=== PATIENT | female | born 1985 | race Two or more races ===

== ENCOUNTER 2024-05-01 16:58 | Emergency (ER) | payer OTHER, SELFPAY ==
[2024-05-01] VITALS (10 sets, daily range): BP systolic 124–128; BP diastolic 79–88; PULSE 70–91; RESP 16–18; TEMP 36.5–36.9; O2SAT 97–100; BMI 37.2
--- NOTE | 2024-05-01 17:31 | XR_ITS ---
Examination: Pelvic ultrasound, transabdominal, complete Technique: Transabdominal ultrasound of the pelvis performed using grayscale imaging Date and time of exam: May 01, 2024 1811 hrs. Indications: Pelvic pain beginning 3 days ago, history uterine fundal mass 2.3 x 2.7 x 2.7 cm on pelvic sonogram June 13, 2023 Findings: Uterus 10.8 x 6.4 x 7.2 cm anteverted Uterine area fundal fibroid degeneration 3.1 x 2.3 x 2.9 cm Right ovary obscured by bowel gas Left ovary 3.9 x 2.1 x 2.6 cm arterial flow Endometrial stripe 0.7 cm Impression: Uterine area of fibroid degeneration in the fundus, 3.1 x 2.3 x 2.9 cm
--- NOTE | 2024-05-01 17:32 | PD.EDRME ---
Rapid Medical Screening Exam RME Arrival date/time: 05/01/24 16:58 38-year-old female presents emergency department today stating she had unprotected sex on Friday patient reports since then she has been having pain in her pelvic region and discharge Chief Complaint: Abdominal Pain Time Seen by Provider: 05/01/24 17:03 Vital signs: Vital Signs Temperature 98.5 F 05/01/24 17:22 Pulse Rate 91 05/01/24 17:22 Respiratory Rate 16 05/01/24 17:22 Blood Pressure 126/88 H 05/01/24 17:22 Pulse Oximetry (%) 98 05/01/24 17:22 Oxygen Delivery Method Room Air 05/01/24 17:22
[2024-05-01] MEDS: KETOROLAC INJ 30 MG/ML VIAL IM (17:45)
[2024-05-01 18:17] LABS: Collection Type, Urine Clean Catch
[2024-05-01 18:18] LABS: Basophils % (Auto) 0 % (0-2.5); Eosinophils # (Auto) 0.2 Thou/mm3 (0.0-0.5); Eosinophils % (Auto) 2 % (0-10); Hematocrit 38.9 % (36.0-46.0); Immature Granulocytes % (Auto) 0 % (0-0); Immature Granulocytes Auto 0.02 Thou/mm3 (0.00-0.00); Lymphocytes # (Auto) 2.3 Thou/mm3 (1.0-4.8); Lymphocytes % (Auto) 31 % (10-50); Mean Corpuscular HGB Conc 33.4 g/dl (31.0-37.0); Mean Corpuscular Hemoglobin 27.4 pg (25.0-35.0); Mean Corpuscular Volume 82 fL (80-100); Monocytes # (Auto) 0.6 Thou/mm3 (0.0-0.8); Monocytes % (Auto) 9 % (0-12); Neutrophils # (Auto) 4.2 Thou/mm3 (1.8-7.7); Neutrophils % (Auto) 58 % (37-80); Nucleated Red Blood Cell % 0 /100 WBC (0); Platelet Count 222 Thou/mm3 (140-440); RDW Standard Deviation 39.6 fL (36.4-46.3); Red Blood Count 4.74 Miln/mm3 (4.00-5.20); White Blood Count 7.3 Thou/mm3 (3.6-11.0)
[2024-05-01 18:25] LABS: Bilirubin,Urine Negative (Negative); Blood,Urine Trace (Negative); Clarity,Urine Clear (Clear/Hazy); Color,Urine Lt-Yellow (Lt Yel-Yel); Culture Indicated,Urine Not Indicated; Glucose, Urine Negative (Negative); Ketones,Urine Negative (Negative); Leukocyte Esterase,Urine Negative (Negative); Nitrite,Urine Negative (Negative); Protein,Urine Negative (Neg - Trace); RBC,Urine 3 /hpf (0-3); Specific Gravity,Urine 1.021 (1.001-1.035); Squamous Epithelial Cell,Urine 5 /hpf (0-5); Urobilinogen,Urine Negative mg/dL (0.0-1.0); WBC,Urine 1 /hpf (0-5)
--- NOTE | 2024-05-01 18:52 | PC.NURSE ---
Patient from to er from [facility] and taken to room 19 with c/o lower abdominal pain radiating through back x 3 days, patient also, c/o nausea, no vomiting or diarrhea, skin is warm dry and pain, patient rates pain 8/10 after administration of toradol in [facility], chart up to be seen by er provider, call light within reach.
[2024-05-01 18:53] LABS: Alanine Aminotransferase 40 U/L (10-49); Albumin, Serum 4.5 gm/dL (3.5-5.0); Albumin/Globulin Ratio 1.4 (1.2-2.2); Alkaline Phosphatase 61 U/L (46-116); Anion Gap 9 (7-16); Aspartate Amino Transferase 30 U/L (0-34); BUN/Creatinine Ratio 11 Ratio (12-20); Blood Urea Nitrogen 8 mg/dL (9-23); Calcium 9.4 mg/dL (8.3-10.6); Calcium (Corrected) 9.4 mg/dL (8.5-10.1); Carbon Dioxide 25.5 mMol/L (20.0-31.0); Chloride 105 mMol/L (98-107); Creatinine (Component) 0.7 mg/dL (0.6-1.3); Estimated Creatinine Clearance 139.6 mL/min (>60); Globulin 3.2 gm/dL (2.3-3.5); Glucose 88 mg/dL (74-106); Lipase 91 U/L (12-53); Osmolality,Calculated 274 (275-295); Potassium 3.8 mMol/L (3.4-5.1); Sodium 139 mMol/L (136-145); Total Protein 7.7 gm/dL (5.7-8.2); eGFR > 60 See Note
--- NOTE | 2024-05-01 19:06 | XR_ITS ---
Examination: CT abdomen with intravenous contrast CT pelvis with intravenous contrast 2-D coronal reconstructions 2-D sagittal reconstructions Date and time of exam:May 01, 20242048 hrs. Indications: Abdominal pain beginning 3 days ago with nausea weakness CTDI: vol (mGy) May 01, 20242048 hrs. Comparison June 13, 2023 DLP: (mGycm) 60 cc Isovue-370 Technique: Multiple axial sections of the abdomen and pelvis have been obtained. 64 slice high-resolution scanner used. 3 mm axial sections have been obtained, post intravenous injection 60 cc Isovue-370 2-D sagittal, coronal reconstructions obtained. Low dose protocols were performed. One or more of the following dose reduction techniques were used; automated exposure control, adjustment of the mA and/or KV according to patient size, use of iterative reconstruction technique. Findings: No focal liver or splenic lesions Absent gallbladder No pancreatic or adrenal mass Moderate bilateral renal parenchymal scar formation No renal or ureteral calculi, no hydronephrosis No bowel obstruction A few loops of fluid distended small bowel in the lower abdomen Absent appendix No adnexal mass Contracted urinary bladder Moderate osteopenia L5-S1 3 mm calcified central lumbar disc bulge Impression: Absent gallbladder Moderate bilateral renal parenchymal scar formation, no hydronephrosis A few loops of fluid distended small bowel in the lower abdomen, consider ileus, enteritis No bowel obstruction
--- NOTE | 2024-05-01 19:06 | PD.EDABDPN ---
ED Abdominal Pain RME/HPI General Chief Complaint: Abdominal Pain Stated complaint: ABD PAIN x 2 DAYS Time seen by provider: 05/01/24 17:03 Arrival date/time: 05/01/24 16:58 RME / HPI RME / HPI narrative: 38-year-old female presents emergency department today stating she had unprotected sex on Friday. Patient reports since then she has been having pain in her pelvic region and discharge pain is described as dull ache, severity 8 out of 10 radiating to the left lower abdomen. Patient denies any dysuria or frequency. Patient denies any fever. Denies any vomiting. She states that she had bilateral tubal ligation in the past. Related Data Previous Rx's ?Medication ?Instructions ?Recorded docusate sodium 100 mg capsule 100 mg PO BID #40 caps 11/24/21 hydrocodone 5 mg-acetaminophen 325 1 tab PO Q6HR PRN pain (scale 11/24/21 mg tablet score 7-10) #20 tabs ibuprofen 600 mg tablet 600 mg PO Q8H PRN pain (scale 11/24/21 score 4-6) #15 tabs hydrocodone 5 mg-acetaminophen 325 1 tab PO Q8H PRN pain #14 tabs 06/13/23 mg tablet ibuprofen 800 mg tablet (IBU) 800 mg PO Q8H #20 tabs 06/13/23 valacyclovir 1 gram tablet 1,000 mg PO TID #21 tabs 05/01/24 (Valtrex) Allergies Allergy/AdvReac Type Severity Reaction Status Date / Time No Known Allergies Allergy Verified 05/01/24 17:00 Review of Systems Review of Systems Narrative Review of Systems: Review of system reviewed and within normal limits except mentioned in HPI ED Exam Narrative Physical exam: VITAL SIGNS: Reviewed. GENERAL APPEARANCE: Alert and interactive, follows commands, no acute distress, HEAD AND FACE: Non-traumatic. ENT: PERRL, pink conjunctivitis, eyelid no trauma, Mucous membrane moist. NECK: Supple, nontender, no nuchal rigidity. CHEST: No tenderness, no crepitus, no paradoxical movement, no retractions. LUNGS: Clear, well ventilated, symmetric, no rales, no wheezing, no ronchi, no stridor, good breath sounds bilaterally. HEART: Regular rate, regular rhythm, no murmur, no gallops. ABDOMEN: Soft, positive bowel sounds, nondistended, no guarding, left lower abdominal tenderness,/pelvic tenderness, no rebound, no masses, RECTAL: Deferred. GENITAL: Deferred. NEUROLOGICAL: Gross motor function intact sensory function intact, Appropriate for age. MUSCULOSKELETAL: low back nontender, full range of motion. EXTREMITIES: Nontender, full range of motion. SKIN: Color pink, dry, no rash, no lacerations, no abrasions, no contusions. LYMPHATICS: Deferred. Course Quality Measures none Orders Category Date Time Status CT Screening NOW Care 05/01/24 19:[address] abdomen pelvis w con Stat Exams 05/01/24 19:06 Completed US pelvic complete Stat Exams 05/01/24 17:31 Completed CBC Stat Lab 05/01/24 17:59 Completed Chlamydia/GC/TV - PCR Stat Lab 05/01/24 17:42 Received Comprehensive Metabolic Panel Stat Lab 05/01/24 17:59 Completed HCG Qualitative,Urine Stat Lab 05/01/24 17:42 Completed Lipase Stat Lab 05/01/24 17:59 Completed UA, C/S IF [Urinalysis, C/S if Indicated] Stat Lab 05/01/24 17:42 Completed Acyclovir [Zovirax] Med 05/01/24 23:21 Discontinued 800 mg PO X1 ONE Ketorolac Inj [Toradol Inj] Med 05/01/24 17:31 Discontinued 30 mg IM X1 ONE Morphine Inj Med 05/01/24 19:06 Discontinued 4 mg IVP X1 ONE Vital Signs Vital signs: Vital Signs Temperature 98.5 F 05/01/24 17:22 Pulse Rate 91 05/01/24 17:22 Respiratory Rate 16 05/01/24 17:22 Blood Pressure 126/88 H 05/01/24 17:22 Pulse Oximetry (%) 98 05/01/24 17:22 Oxygen Delivery Method Room Air 05/01/24 17:22 Abdominal Pain MDM MDM Narrative MDM Narrative:: 38-year-old female presents emergency department today stating she had unprotected sex on Friday. Patient reports since then she has been having pain in her pelvic region and discharge pain is described as dull ache, severity 8 out of 10 radiating to the left lower abdomen. Patient denies any dysuria or frequency. Patient denies any fever. Denies any vomiting. She states that she had bilateral tubal ligation in the past. Pelvic exam was done by me with a female nurse around all the time, I noticed multiple blister noted on the perivaginal area. No redness noted, no abnormal vaginal discharge is noted. Patient's workup all came back unremarkable urinalysis no UTI. Pelvic ultrasound also came back normal, CT scan of the abdomen and pelvis also came back unremarkable. Patient received acyclovir in the emergency room. Patient data External records reviewed:: None Clinical information provided by:: patient Social determinants that could affect healthcare access:: none Patient has the following chronic illnesses:: None How is presenting disease/condition affected by chronic disease/condition?: no chronic disease Evaluation data The following diagnostics were reviewed and interpreted by me:: lab results and radiology exam(s) Lab and/or radiology exams considered but not ordered:: None Interpretation Summary: Patient's workup all came back unremarkable urinalysis no UTI. Pelvic ultrasound also came back normal, CT scan of the abdomen and pelvis also came back unremarkable. Medications / Prescriptions Medications or Prescriptions considered but not ordered:: None Medication administrations:: Medication Administration History Discontinued Medications Acyclovir (Acyclovir 800 Mg Tablet) 800 mg PO X1 ONE Stop: 05/01/24 23:22 Ketorolac Tromethamine (Ketorolac Inj 30 Mg/Ml Vial) 30 mg IM X1 ONE Stop: 05/01/24 17:32 Last Admin: 05/01/24 17:45 Dose: 30 mg Documented By: Morphine Sulfate (Morphine Sulf Inj 10 Mg/Ml Vial) 4 mg IVP X1 ONE Stop: 05/01/24 19:07 Last Admin: 05/01/24 19:19 Dose: 4 mg Documented By: KD Morphine, Valtrex, and Toradol Consultations Consultation(s) initiated? (list below): No Diagnosis Differential diagnosis abdominal pain: abdominal pain and other (Pelvic pain, genital blister, genital herpes) Most likely diagnosis given after review of the tests above:: Abdominal pain, pelvic pain, genital blister, genital herpes Admission Indicated Admission indicated?: not indicated Explain why admission is indicated or not indicated:: Stable Admission Request Was there a request for admission?: No Disposition Plan Disposition Plan: Discharge Discharge Attestation Discharge Attestation: The patient and all family members were given an opportunity to ask questions and understood the discharge instructions. Discharge instructions specifically effects, indications for sooner follow up or return to the emergency department, and the expected course of current diagnosis. Patient condition: Stable Discharge Plan Plan Patient Disposition: HOME (Self Care) Disposition Comment: Stable Prescriptions/Referrals Prescriptions/Med Rec: New valacyclovir [Valtrex] 1 gram tablet 1,000 mg PO TID Qty: 21 0RF No Action hydrocodone-acetaminophen 5-325 mg Tablet 1 tab PO Q6HR MDD 4 PRN (Reason: pain (scale score 7-10)) Qty: 20 0RF docusate sodium 100 mg Capsule 100 mg PO BID Qty: 40 0RF ibuprofen 600 mg tablet 600 mg PO Q8H PRN (Reason: pain (scale score 4-6)) Qty: 15 0RF ibuprofen [IBU] 800 mg tablet 800 mg PO Q8H Qty: 20 0RF hydrocodone-acetaminophen 5-325 mg tablet 1 tab PO Q8H MDD 3 PRN (Reason: pain) Qty: 14 0RF Referrals: No Primary/Family,Physician [Primary Care Provider] - In 1 week Problem List Clinical Impression: Blister of genital area Patient/Caregiver Discharge Instructions Discharge Activity: activity as tolerated Education Materials: Diagnosing Herpes Additional Instructions: Thank you for the opportunity for serving you today. You are stable for discharged . You are advised to: Follow-up with your PCP in 1 to 2 days and asked for referral to [facility] Return to ED for worsening of symptoms Increase oral fluids Take medication as prescribed Print Language: Persian Stand Alone Forms: [facility]ita Award Info., Patient Portal Info Letter
[2024-05-01] MEDS: MORPHINE SULF INJ 10 MG/ML VIAL 4 MG IVP (19:19)
[2024-05-01 20:17] LABS: HCG Qualitative,Urine Negative
[2024-05-01] MEDS: ACYCLOVIR 800 MG TABLET PO (23:28)
[2024-05-02 10:20] LABS: Chlamydia trachomatis PCR Negative (Not Detect); Neisseria Gonorrhoeae DNA PCR Negative (Not Detect); Trichomonas Negative (Negative)
== END 2024-05-01 23:41 | disposition home or self-care (01) ==
PROVIDERS: Nurse Practitioner Family; Nurse Practitioner Primary Care; Emergency Provider Emergency Medicine
DX: S30.824A Blister (nonthermal) of vagina and vulva, initial encounter (principal); R10.2 Pelvic and perineal pain
CPT/HCPCS: 36415; 74177; 76856; 80053; 81001; 81025; 83690; 85025; 87491; 87591; 87661; 96372; 96374; 99285; A4649; J1885; J2270; Q9967; A9270

== ENCOUNTER 2024-11-29 15:32 | Emergency (ER) | payer OTHER, SELFPAY ==
[2024-11-29 15:43] VITALS: BP 130/85; PULSE 80; RESP 20; TEMP 36.8; O2SAT 97; BMI 33.7
--- NOTE | 2024-11-29 16:08 | XR_ITS ---
Examination: Pelvic ultrasound, transabdominal, complete Technique: Transabdominal ultrasound of the pelvis performed using grayscale imaging Date and time of exam: November 29, 2024 1623 hours INDICATIONS: Lower abdominal pain and pelvic pain beginning 2 days ago. FINDINGS: Uterus 9.5 cm endometrial stripe 0.7 cm No uterine mass or intrauterine gestation Right ovary 2.9 cm flow. Left ovary 2.6 cm arterial flow 15 x 12 x 13 mm lymph node in the right adnexal region IMPRESSION: 15 x 12 x 13 mm lymph node in the right adnexal region, consider CT scan abdomen and pelvis post intravenous contrast follow-up to compare with the April 2024 exam
--- NOTE | 2024-11-29 16:25 | PD.EDABDPN ---
ED Abdominal Pain RME/HPI General Chief Complaint: Abdominal Pain Stated complaint: Right lower abdominal pain X 2 days Arrival date/time: 11/29/24 15:32 39-year-old female with no known medical history presents to the emergency room with a chief complaint of right pelvic pain x 2 days. Patient is also complaining of an abscess in the gluteal cleft x 1 week Source: patient Mode of arrival: ambulatory Limitations: no limitations Related Data Previous Rx's ?Medication ?Instructions ?Recorded docusate sodium 100 mg capsule 100 mg PO BID #40 caps 11/24/21 hydrocodone 5 mg-acetaminophen 325 1 tab PO Q6HR PRN pain (scale 11/24/21 mg tablet score 7-10) #20 tabs ibuprofen 600 mg tablet 600 mg PO Q8H PRN pain (scale 11/24/21 score 4-6) #15 tabs hydrocodone 5 mg-acetaminophen 325 1 tab PO Q8H PRN pain #14 tabs 06/13/23 mg tablet ibuprofen 800 mg tablet (IBU) 800 mg PO Q8H #20 tabs 06/13/23 valacyclovir 1 gram tablet 1,000 mg PO TID #21 tabs 05/01/24 (Valtrex) Allergies Allergy/AdvReac Type Severity Reaction Status Date / Time No Known Allergies Allergy Verified 11/29/24 15:35 Review of Systems Review of Systems Systems Reviewed: All systems reviewed, normal except as documented Constitutional Constitutional: Reports system reviewed and no additional complaints, except as documented, Denies fatigue, Denies fever(s), Denies headache(s) and Denies weakness Eyes Eyes: Reports system reviewed and no additional complaints, except as documented, Denies blurry vision and Denies change in vision ENT Ears, Nose, Mouth, and Throat: Reports system reviewed and no additional complaints, except as documented, Denies otalgia, Denies headache(s), Denies nasal congestion, Denies throat swelling and Denies vertigo Cardiovascular Cardiovascular: Reports system reviewed and no additional complaints, except as documented, Denies chest pain, Denies dyspnea and Denies dyspnea on exertion Respiratory Respiratory: Reports system reviewed and no additional complaints, except as documented, Denies chest congestion, Denies cough, Denies dyspnea, Denies dyspnea on exertion and Denies wheezing Gastrointestinal Gastrointestinal: Reports system reviewed and no additional complaints, except as documented, Reports abdominal pain, Reports cramping, Denies nausea and Denies vomiting Genitourinary Genitourinary: Reports system reviewed and no additional complaints, except as documented Musculoskeletal Musculoskeletal: Reports system reviewed and no additional complaints, except as documented and Denies back pain Integumentary/Breasts Skin/Breast: Reports system reviewed and no additional complaints, except as documented, Reports erythema, Reports furuncle and Denies wounds Neurologic Neurologic: Reports system reviewed and no additional complaints, except as documented, Denies confusion, Denies headache(s), Denies lack of coordination, Denies vertigo and Denies weakness Psychiatric Psychiatric: Reports system reviewed and no additional complaints, except as documented, Denies anxiety, Denies confusion, Denies depression, Denies paranoia, Denies suicidal ideation and Denies tactile hallucinations Endocrine Endocrine: Reports system reviewed and no additional complaints, except as documented and Denies fatigue Hematologic/Lymphatic Hematologic/Lymphatic: Reports system reviewed and no additional complaints, except as documented and Denies lymphadenopathy Allergic/Immunologic Allergic/Immunologic: Reports system reviewed and no additional complaints, except as documented, Denies throat swelling, Denies urticaria and Denies wheezing ED Exam General Limitations: Present no limitations General appearance: Present alert and in no apparent distress Head Head exam: Present atraumatic Eye Eye exam: Present normal appearance, PERRL and EOMI ENT ENT exam: Present normal exam, normal oropharynx and mucous membranes moist Neck Neck exam: Present normal inspection, full ROM and trachea midline Chest Chest inspection: Present normal inspection and symmetric chest wall rise Respiratory Respiratory exam: Present normal lung sounds bilaterally Cardiovascular Cardiovascular exam: Present regular rate, normal rhythm and normal heart sounds Abdominal Exam Abdominal exam: Present soft and normal bowel sounds; Absent distention, tenderness, guarding, rebound or rigidity Extremities Exam Extremities exam: Present normal inspection and full ROM Back Exam Back exam: Present normal inspection and full ROM Neurological Exam Neurological exam: Present alert, oriented X3 and CN II-XII intact Psychiatric Psychiatric exam: Present normal affect and normal mood Skin Skin exam: Present warm, dry, intact and normal color Course Quality Measures none Orders Category Date Time Status Incision and Drainage Set Up X1 Care 11/29/24 16:09 Active US pelvic complete Stat Exams 11/29/24 16:08 Ordered CBC Stat Lab 11/29/24 16:08 Ordered CMP [Comprehensive Metabolic Panel] Stat Lab 11/29/24 16:08 Ordered HCG Qualitative,Urine Stat Lab 11/29/24 16:08 Ordered Lipase Stat Lab 11/29/24 16:08 Ordered UA [Urinalysis] Stat Lab 11/29/24 16:08 Ordered Urine Culture Stat Lab 11/29/24 16:08 Ordered Vital Signs Vital signs: Vital Signs Temperature 98.3 F 11/29/24 15:43 Pulse Rate 80 11/29/24 15:43 Respiratory Rate 20 11/29/24 15:43 Blood Pressure 130/85 H 11/29/24 15:43 Pulse Oximetry (%) 97 11/29/24 15:43 Oxygen Delivery Method Room Air 11/29/24 15:43 Abdominal Pain MDM MDM Narrative MDM Narrative:: 39-year-old female with no known medical history presents to the emergency room with a chief complaint of right pelvic pain x 2 days. Patient is also complaining of an abscess in the gluteal cleft x 1 week Patient data External records reviewed:: [facility] previous records Clinical information provided by:: patient Social determinants that could affect healthcare access:: none Patient has the following chronic illnesses:: No chronic illness How is presenting disease/condition affected by chronic disease/condition?: no chronic disease Evaluation data The following diagnostics were reviewed and interpreted by me:: lab results and radiology exam(s) Lab and/or radiology exams considered but not ordered:: Labs and radiology exams considered in order Discharge Plan Prescriptions/Referrals Prescriptions/Med Rec: No Action hydrocodone-acetaminophen 5-325 mg Tablet 1 tab PO Q6HR MDD 4 PRN (Reason: pain (scale score 7-10)) Qty: 20 0RF docusate sodium 100 mg Capsule 100 mg PO BID Qty: 40 0RF ibuprofen 600 mg tablet 600 mg PO Q8H PRN (Reason: pain (scale score 4-6)) Qty: 15 0RF ibuprofen [IBU] 800 mg tablet 800 mg PO Q8H Qty: 20 0RF hydrocodone-acetaminophen 5-325 mg tablet 1 tab PO Q8H MDD 3 PRN (Reason: pain) Qty: 14 0RF valacyclovir [Valtrex] 1 gram tablet 1,000 mg PO TID Qty: 21 0RF Patient/Caregiver Discharge Instructions Print Language: Dutch
[2024-11-29 16:33] LABS: Collection Type, Urine Clean Catch
[2024-11-29 16:35] LABS: Basophils # (Auto) 0.0 Thou/mm3 (0.0-0.2); Basophils % (Auto) 1 % (0-2.5); Eosinophils # (Auto) 0.1 Thou/mm3 (0.0-0.5); Eosinophils % (Auto) 2 % (0-10); Hematocrit 36.2 % (36.0-46.0); Hemoglobin 12.0 g/dL (12.0-16.0); Immature Granulocytes Auto 0.02 Thou/mm3 (0.00-0.00); Lymphocytes # (Auto) 1.4 Thou/mm3 (1.0-4.8); Lymphocytes % (Auto) 22 % (10-50); Mean Corpuscular HGB Conc 33.1 g/dl (31.0-37.0); Mean Corpuscular Hemoglobin 27.8 pg (25.0-35.0); Mean Corpuscular Volume 84 fL (80-100); Monocytes # (Auto) 0.4 Thou/mm3 (0.0-0.8); Monocytes % (Auto) 7 % (0-12); Neutrophils # (Auto) 4.5 Thou/mm3 (1.8-7.7); Neutrophils % (Auto) 69 % (37-80); Nucleated Red Blood Cell # 0.00 Thou/mm3 (0.00-0.00); Nucleated Red Blood Cell % 0 /100 WBC (0); Platelet Count 192 Thou/mm3 (140-440); RDW Standard Deviation 42.4 fL (36.4-46.3); Red Blood Count 4.32 Miln/mm3 (4.00-5.20); White Blood Count 6.5 Thou/mm3 (3.6-11.0)
[2024-11-29 16:46] LABS: Bacteria,Urine Rare; Bilirubin,Urine Negative (Negative); Blood,Urine 3+ (Negative); Clarity,Urine Turbid (Clear/Hazy); Color,Urine Yellow (Lt Yel-Yel); Glucose, Urine Negative (Negative); Ketones,Urine Negative (Negative); Leukocyte Esterase,Urine Positive (Negative); Nitrite,Urine Negative (Negative); PH,Urine 6.5 (5.0-7.0); Protein,Urine 1+ (Neg - Trace); RBC,Urine 9 /hpf (0-3); Specific Gravity,Urine 1.029 (1.001-1.035); Squamous Epithelial Cell,Urine 27 /hpf (0-5); Urobilinogen,Urine 3.0 mg/dL (0.0-1.0); WBC,Urine 14 /hpf (0-5)
[2024-11-29 16:48] LABS: HCG Qualitative,Urine Negative
[2024-11-29 17:03] LABS: Alanine Aminotransferase 9 U/L (10-49); Albumin, Serum 4.1 gm/dL (3.5-5.0); Albumin/Globulin Ratio 1.5 (1.2-2.2); Alkaline Phosphatase 60 U/L (46-116); Anion Gap 7 (7-16); Aspartate Amino Transferase 14 U/L (0-34); BUN/Creatinine Ratio 7 Ratio (12-20); Bilirubin,Total 1.8 mg/dL (0.3-1.2); Blood Urea Nitrogen 5 mg/dL (9-23); Calcium 8.6 mg/dL (8.3-10.6); Calcium (Corrected) 8.6 mg/dL (8.5-10.1); Carbon Dioxide 25.8 mMol/L (20.0-31.0); Chloride 108 mMol/L (98-107); Creatinine (Component) 0.7 mg/dL (0.6-1.3); Estimated Creatinine Clearance 131.3 mL/min (>60); Globulin 2.8 gm/dL (2.3-3.5); Glucose 93 mg/dL (74-106); Lipase 50 U/L (12-53); Osmolality,Calculated 278 (275-295); Potassium 3.7 mMol/L (3.4-5.1); Sodium 141 mMol/L (136-145); Total Protein 6.9 gm/dL (5.7-8.2); eGFR > 60 See Note
[2024-11-29] MEDS: HYDROcodone/APAP 5/325 TABLET 1 TAB PO (17:30)
--- NOTE | 2024-11-29 17:31 | XR_ITS ---
Examination: CT abdomen with intravenous contrast CT pelvis with intravenous contrast 2-D coronal reconstructions 2-D sagittal reconstructions Date and time of exam:November 29, 2024 and 9007 hours, comparison May 01, 2024 INDICATIONS: Intermittent right lower abdominal pain beginning 2 days ago, 15 mm lymph node in the right adnexal region on pelvic sonogram today. CTDI: vol (mGy) 10.8 DLP: (mGycm) 697 Technique: Multiple axial sections of the abdomen and pelvis have been obtained. 64 slice high-resolution scanner used. 3 mm axial sections have been obtained, post intravenous injection 60 cc Isovue 370 2-D sagittal, coronal reconstructions obtained. Low dose protocols were performed. One or more of the following dose reduction techniques were used; automated exposure control, adjustment of the mA and/or KV according to patient size, use of iterative reconstruction technique. Findings: No focal liver or splenic lesions Absent gallbladder No pancreatic or adrenal mass. Moderate renal parenchymal scar formation. No pathologic abdominal lymphadenopathy No bowel obstruction Absent appendix No diverticulitis Anteverted uterus with enlarged fundus including 4 cm uterine mass No pathologic pelvic lymphadenopathy noted on this study. Moderate disc narrowing L5-S1 IMPRESSION: No pathologic abdominal or pelvic lymphadenopathy and the study There does appear to be a uterine fundal mass, not depicted on the transabdominal pelvic sonogram today, but noted on the pelvic sonogram May 01, 2024, recommend transvaginal pelvic sonography follow-up
--- NOTE | 2024-11-29 18:00 | EDRME_ITS ---
Rapid Medical Screening Exam [facility] Arrival date/time: 11/29/24 15:32 39-year-old female with no known medical history presents to the emergency room with a chief complaint of right pelvic pain x 2 days. Patient is also complaining of an abscess in the gluteal cleft x 1 week I have greeted and performed a focused initial assessment of this patient. A comprehensive ED assessment and evaluation of the patient, analysis of all test results, and completion of the medical decision making process will be conducted by additional ED providers. Chief Complaint: Abdominal Pain Time Seen by Provider: 11/29/24 17:00 Vital signs: Vital Signs Temperature 98.3 F 11/29/24 15:43 Pulse Rate 80 11/29/24 15:43 Respiratory Rate 20 11/29/24 15:43 Blood Pressure 130/85 H 11/29/24 15:43 Pulse Oximetry (%) 97 11/29/24 15:43 Oxygen Delivery Method Room Air 11/29/24 15:43 Vital signs reviewed by provider: Yes ED Procedures Abscess I/D Site: other (Gluteal cleft) Side (if applicable): left Local Anesthetic: lidocaine 1% Amount of anesthesia used (mL): 4 Technique: incised with #11 blade Amount of fluid expressed (mL): 5 Packing used?: iodoform Complications: bleeding
--- NOTE | 2024-11-29 20:25 | PD.EDADULT ---
ED General RME/HPI General Chief complaint: Abdominal Pain Stated complaint: Right lower abdominal pain X 2 days Time Seen by Provider: 11/29/24 17:00 Arrival date/time: 11/29/24 15:32 CC: Small bump in the right groin that is tender HPI ongoing since 2 days, no other bumps appreciated denies fever chills painful urination bloody urination or any other symptoms. No OTC medicines taken RME / HPI RME / HPI narrative: 11/29/24 15:32 39-year-old female with no known medical history presents to the emergency room with a chief complaint of right pelvic pain x 2 days. Patient is also complaining of an abscess in the gluteal cleft x 1 week I have greeted and performed a focused initial assessment of this patient. A comprehensive ED assessment and evaluation of the patient, analysis of all test results, and completion of the medical decision making process will be conducted by additional ED providers. Related Data Previous Rx's ?Medication ?Instructions ?Recorded docusate sodium 100 mg capsule 100 mg PO BID #40 caps 11/24/21 hydrocodone 5 mg-acetaminophen 325 1 tab PO Q6HR PRN pain (scale 11/24/21 mg tablet score 7-10) #20 tabs ibuprofen 600 mg tablet 600 mg PO Q8H PRN pain (scale 11/24/21 score 4-6) #15 tabs hydrocodone 5 mg-acetaminophen 325 1 tab PO Q8H PRN pain #14 tabs 06/13/23 mg tablet ibuprofen 800 mg tablet (IBU) 800 mg PO Q8H #20 tabs 06/13/23 valacyclovir 1 gram tablet 1,000 mg PO TID #21 tabs 05/01/24 (Valtrex) meloxicam 7.5 mg tablet 7.5 mg PO QDAY #10 tabs 11/29/24 prednisone 20 mg tablet See Taper PO BID 3 days #6 tabs 11/29/24 Allergies Allergy/AdvReac Type Severity Reaction Status Date / Time No Known Allergies Allergy Verified 11/29/24 15:35 Review of Systems Review of Systems Narrative Review of Systems: GEN: No fever, no chills, no weight loss EYES: No discharge, no visual changes, no pain HEENT: No ear pain, no congestion, no sore throat PULM: No shortness of breath, no cough, no congestion CV: No chest pain, no dyspnea on exertion, no palpitations GI: No nausea, no vomiting, no diarrhea, no pain, no constipation : No frequency, no urgency, no dysuria MUSC/SKEL: No joint pain, no back pain SKIN: No rash PSYCH: No hallucinations, no depression HEME/LYMPH: No easy bleeding or bruising tendencies NEURO: No weakness, no headache Past Medical History Past Medical History NEUROLOGIC: Negative Seizures CARDIAC: Negative Cardiac Disorders or Congestive Heart Failure RESPIRATORY: Negative Chronic Obstructive Pulmonary Disease (COPD) or Asthma GASTROINTESTINAL: Positive Gastrointestinal Disorders and Obesity GENITOURINARY: Negative Renal Disease REPRODUCTIVE: Positive Previous Pregnancies MUSCULOSKELETAL: Positive Musculoskeletal Disorders ENDOCRINE: Negative Diabetes Mellitus Type 1 or Diabetes Mellitus Type 2 HEMATOLOGIC: Positive Anemia; Negative Sickle Cell Disease OTHER HISTORY: Negative Blood Transfusions, Blood Transfusion Reaction or Anesthesia Reactions Social History SMOKING STATUS: Never smoker SUBSTANCE USE: does not use ED Exam Narrative Physical exam: [General: Obese not in any acute distress Head normocephalic HEENT: Within acceptable limits Neck is supple nontender Chest equal chest rise nontender to palpation Respiratory: Clear to auscultation no wheezes crackles or rubs CV: Rate rhythm is regular no murmurs rubs or clicks Abdomen: In the right inguinal crease just lateral to the pubis mounds is a small firm tender immobile mass appreciated. No other masses of the similar nature appreciated proximal or distally. There is no erythema or edema of the skin of this area. Otherwise abdomen is distended secondary to body habitus soft nontender no masses positive bowel sounds all 4 quadrants Back: No CVA tenderness no spinous process tenderness from cervical spine thoracic and lumbar spine Skin: Intact no petechiae rash induration ulceration or crepitus Extremities: Moving all extremity against resistance cap refill less than 2 seconds neurosensory intact Neuro: Awake alert oriented x3 Glascow coma 15 no focal deficits] Course Quality Measures none Orders Category Date Time Status CT Screening NOW Care 11/29/24 17:31 Active Incision and Drainage Set Up X1 Care 11/29/24 16:[address] abdomen pelvis w con Stat Exams 11/29/24 17:31 Completed US pelvic complete Stat Exams 11/29/24 16:08 Completed CBC Stat Lab 11/29/24 16:22 Completed CMP [Comprehensive Metabolic Panel] Stat Lab 11/29/24 16:22 Completed HCG Qualitative,Urine Stat Lab 11/29/24 16:17 Completed Lipase Stat Lab 11/29/24 16:22 Completed UA [Urinalysis] Stat Lab 11/29/24 16:17 Completed Urine Culture Stat Lab 11/29/24 16:17 Received HYDROcodone*/APAP 5/325 [[place] 5/325] Med 11/29/24 17:01 Discontinued 1 tab PO X1 ONE Vital Signs Vital signs: Vital Signs Temperature 98.3 F 11/29/24 15:43 Pulse Rate 80 11/29/24 15:43 Respiratory Rate 20 11/29/24 15:43 Blood Pressure 130/85 H 11/29/24 15:43 Pulse Oximetry (%) 97 11/29/24 15:43 Oxygen Delivery Method Room Air 11/29/24 15:43 Discharge Plan Plan Patient Disposition: HOME (Self Care) Patient condition on transfer: Stable Prescriptions/Referrals Prescriptions/Med Rec: New prednisone 20 mg tablet See Taper PO BID 3 Days Qty: 6 0RF Taper: Prednisone Taper 20 mg DAILY for 2 Days and 0 Hour 10 mg DAILY for 2 Days and 0 Hour 5 mg DAILY for 7 Days and 0 Hour meloxicam 7.5 mg tablet 7.5 mg PO QDAY Qty: 10 0RF No Action hydrocodone-acetaminophen 5-325 mg Tablet 1 tab PO Q6HR MDD 4 PRN (Reason: pain (scale score 7-10)) Qty: 20 0RF docusate sodium 100 mg Capsule 100 mg PO BID Qty: 40 0RF ibuprofen 600 mg tablet 600 mg PO Q8H PRN (Reason: pain (scale score 4-6)) Qty: 15 0RF ibuprofen [IBU] 800 mg tablet 800 mg PO Q8H Qty: 20 0RF hydrocodone-acetaminophen 5-325 mg tablet 1 tab PO Q8H MDD 3 PRN (Reason: pain) Qty: 14 0RF valacyclovir [Valtrex] 1 gram tablet 1,000 mg PO TID Qty: 21 0RF Referrals: [facility] ([facility])Alyssa MD [Physician] - In 1 week Stewart Blue MD [Physician] - In 1 week No Primary/Family,Physician [Primary Care Provider] - In 1 week Problem List Clinical Impression: Lymphadenopathy Patient/Caregiver Discharge Instructions Other Activity Instructions:: Take the medication as needed if there is worsening of symptoms in spite of the medication return the emergency room immediately for further evaluation. Education Materials: Lymphadenopathy Print Language: Urdu Stand Alone Forms: Margarita Award Info., Patient Portal Info Letter, Work/School Release PA/[employer] Supervising Physician GLENNA Supervising Physician: Paul Perez ENP MDM Clinical Information Provided by patient Medical Records Reviewed [facility] Labs/Rad/Tests considered, not Ordered Describe details: CBC shows no acute leukocytosis anemia thrombocytopenia CMP shows no significant electrolyte imbalances renal impairment transaminitis or T. bili elevation Urine is turbid 3+ blood 14 WBCs 27 squamous epithelial rare bacteria and leukocyte Estrace positive, I suspect that this is a contaminated catch. Imaging Provider imaging interpretation(s): CT abdomen pelvis shows noes particular finding is interpreted by the radiologist including lymphadenopathy. Coordination with a transvaginal ultrasound shows a probable uterine fibroid that was also present on ultrasound from April of this year Medication Administration(s) Medication Administration History Discontinued Medications Hydrocodone Bitart/Acetaminophen (Hydrocodone/Apap 5/325 Tablet) 1 tab PO X1 ONE Stop: 11/29/24 17:02 Last Admin: 11/29/24 17:30 Dose: 1 tab Documented By: Dispositon Disposition: Discharge Home
== END 2024-11-29 20:59 | disposition home or self-care (01) ==
PROVIDERS: Nurse Practitioner Family; Emergency Provider Family Medicine
DX: R59.1 Generalized enlarged lymph nodes (principal); L02.31 Cutaneous abscess of buttock
CPT/HCPCS: 10060; 36415; 74177; 76856; 80053; 81001; 81025; 83690; 85025; 87086; 99284; A4649; Q9967; A9270